=== PATIENT | female | born 1965 | race Two or more races ===

== ENCOUNTER → 2018-03-20 | Outpatient (CLI) | payer OTHER | LOC: M WUC 12:27 | DX: Q76.49 Other congenital malformations of spine, not associated with scoliosis (principal); M25.78 Osteophyte, vertebrae; S30.0XXA Contusion of lower back and pelvis, initial encounter; X58.XXXA Exposure to other specified factors, initial encounter; Y92.9 Unspecified place or not applicable | CPT/HCPCS: 72110 ==